=== PATIENT | female | born 1965 | race Caucasian/White ===

== ENCOUNTER 2017-02-23 21:30 | Emergency (ER) | payer OTHER ==
[~2017-02-23] VITALS: Ht 170.2 cm; Wt 65.8 kg
--- NOTE | ~2017-02-23 | CT4 ---
[facility] A Service of [facility] & [facility] RADIOLOGY TEXT RESULTS PATIENT: KEYONA BALTAZAR LOCATION: [facility] : 67 UNIT #: [id number] AGE: [address]: Shannan Onofre MD SEX: F ORDER DR: [id number] [facility] [address] [place], [place] [address] [id number] MR#: [id number] Acc #: [id number] NAME: KEYONA BALTAZAR : 1965 SEX: F STUDY DATE/TIME: 02/23/2017 22:43 UNIT: [facility] ROOM: STUDY DESCRIPTION: CT Abd and Pelv Wo Cont Attending Physician: Shannan Onofre M.D. Ordering Physician: Shannan Onofre M.D. Primary Care Physician: No Primary Care Physician MEDICAL IMAGING REPORT This report is preliminary unless electronic signature is present EXAM CT abdomen and pelvis 02/23 at 22:43. INDICATIONS Hematuria for 3 days with right flank pain and vomiting that started today. Pain rates 10 out of 10. TECHNIQUE Axial noncontrast images were obtained through the abdomen and pelvis. Multiplanar reformats were obtained. This CT exam was performed with one or more of the following radiation dose reduction techniques: automatic exposure control, adjustment of mA and/or kV according to patient size, and iterative reconstruction. COMPARISON No comparison. FINDINGS Abdomen: There is a 5 mm noncalcified right lower lobe nodule. A similar noncalcified 4-mm nodule noted in the left lower lobe. Chest CT followup in 6 months suggested. These are likely benign granulomas in the absence of a known malignancy. Gallbladder unremarkable. There is mild right hydronephrosis secondary to a 4 mm stone at the ureteropelvic junction. No other definite stones are seen. The unenhanced solid organs are otherwise normal. Unopacified GI tract is normal. No free fluid or adenopathy identified. Pelvis: There are no lower ureteral stones. The bladder is decompressed and not well evaluated. Solid pelvic organs grossly normal. The appendix is normal. The remainder of the GI tract is normal as well. Postoperative changes noted in the proximal left femur. [facility] A Service of [facility] & [facility] RADIOLOGY TEXT RESULTS PATIENT: KEYONA BALTAZAR LOCATION: [facility] : 67 UNIT #: [id number] AGE: [address]: Shannan Onofre MD SEX: F ORDER DR: IMPRESSION 1. Mild right hydronephrosis secondary to a 4 mm ureteropelvic junction stone. No other stones are seen. 2. The GI tract, including the appendix, is within normal limits. 3. Noncalcified nodules in both lower lobes. In the absence of a known malignancy, these are likely benign granulomas. Followup chest CT in 6 months recommended to document stability. Dictated by... Vitaliy Montejo Jr., M.D. THIS IS AN ELECTRONICALLY VERIFIED REPORT Vitaliy Montejo Jr., M.D. at 02/25/2017 9:09 PM RUSSEL/cecy TD: 02/25/2017 08:19 JOB #: [id number] MEDICAL IMAGING REPORT Page 1 of 1 COPY
[2017-02-23 22:23] LABS: URINE SOURCE CLEAN CATCH
[2017-02-23 22:27] LABS: BASOPHIL# 0.1 X10e3 (0-0.3); BASOPHIL% 0.5 % (0-2.5); EOSINOPHIL# 0.3 X10e3 (0-0.7); EOSINOPHIL% 2.6 % (0.0-7.0); HEMATOCRIT 35.2 % (35.0-45.0); MEAN CELL VOLUME 86.7 FL (83-96); MEAN CORPUSCULAR HEMOGLOBIN 29.4 PG (28-34); MEAN CORPUSCULAR HGB CONC 33.9 g/dL (30-36); MEAN PLATELET VOLUME 7.6 FL (6.5-11.5); MONOCYTE# 0.5 X10e3 (0-1.0); NEUTROPHIL# 6.2 X10e3 (1.5-7.1); NEUTROPHIL% 61.9 % (40-75); PLATELET COUNT 349 X10e3 (140-420); RED BLOOD COUNT 4.06 X10e (3.90-5.30); RED CELL DISTRIBUTION WIDTH 14.1 % (11.0-15.5); WHITE BLOOD COUNT 10.1 X10e3 (4.0-10.5)
[2017-02-23 22:28] LABS: DIFF IND NO
[2017-02-23 22:28] LABS: URINE APPEARANCE TURBID; URINE BILIRUBIN NEG (NEG); URINE BLOOD 3+ (NEG); URINE COLOR ORANGE; URINE GLUCOSE NEG (NEG); URINE KETONE NEG (NEG); URINE LEUKOCYTE ESTERASE 1+ (NEG); URINE NITRATE NEG (NEG); URINE PROTEIN 2+ (NEG); URINE SPECIFIC GRAVITY 1.021 (1.003-1.035); URINE UROBILINOGEN 0.2 MG/DL (NEG)
[2017-02-23 22:30] LABS: CULTURE INDICATED? YES; URBCS1 AUWI INNUM /[HPF] (0-2); URINE BACTERIA AUWI 2+ (NEGATIVE); URINE SQUAMOUS EPITHELIAL CELL MANY /[HPF]
[2017-02-23 22:53] LABS: ALBUMIN SERUM 4.5 g/dL (3.5-5.0); BILIRUBIN,TOTAL 0.7 mg/dL (0.2-2.0); BUN/CREATININE RATIO 13.63; CREATININE SERUM 1.1 mg/dL (0.6-1.4); GLOM FILT RATE Estimated 58.5 mL/min (>60); POTASSIUM 3.4 mmol/L (3.5-5.1)
[2017-02-23 22:55] LABS: BILIRUBIN, DIRECT 0.1 mg/dL (0.0-0.2); BILIRUBIN,INDIRECT 0.6 mg/dL (0.0-0.9)
[2017-03-13] MEDS ORDERED: IBUPROFEN800 MG PO (12:28)
[2017-03-13] MEDS ORDERED: OXYCODONE-ACET1 EACH PO (12:29)
[2017-03-13] MEDS ORDERED: DRAMAMINE (12:30)
[2017-03-14] MEDS ORDERED: FLOMAX0.4 M1 PO (20:24)
[2017-03-14] MEDS ORDERED: KEFLEX500 MG PO (20:24)
== END 2017-02-24 00:24 | disposition home or self-care (01) ==
LOC: CED 21:30
PROVIDERS: Emergency Medicine
DX: N13.2 Hydronephrosis with renal and ureteral calculous obstruction (principal)
CPT/HCPCS: 36415; 74176; 80048; 80076; 81003; 83690; 84703; 85025; 87086; 96361; 96374; 96375; 96376; 99284; J1885; J2270; J2405